=== PATIENT | male | born 1965 | race Caucasian/White ===

== ENCOUNTER 2018-05-17 10:18 | Observation (INO) | payer OTHER ==
[2018-05-17 11:12] LABS: ADD MAN DIFF? NO
[2018-05-17] MEDS: NITROGLYCERIN 2% 1 GM OINT PKT TD (11:12)
[2018-05-17] MEDS: ASPIRIN 325 MG TAB PO (11:12)
[2018-05-17 11:13] LABS: WHITE BLOOD COUNT 8.3 10^3/ul (4.8-10.8)
[2018-05-17 11:13] LABS: BASOPHILS % 0.4 % (0.0-2.0); EOSINOPHILS # 0.1 10^3/ul (0.0-0.5); EOSINOPHILS % 1.6 % (0.0-7.0); HEMATOCRIT 40.3 % (42.0-52.0); HEMOGLOBIN 13.9 g/dl (14.0-18.0); IMMATURE GRANS #M 0.04 10^3/ul; IMMATURE GRANS % (M) 0.5 %; LYMPHOCYTES # 1.4 10^3/ul (0.8-2.9); LYMPHOCYTES % 17.2 % (15.0-51.0); MEAN CORPUSCULAR HEMOGLOBIN 28.9 pg (29.0-33.0); MEAN CORPUSCULAR HGB CONC 34.5 g/dl (32.0-37.0); MEAN CORPUSCULAR VOLUME 83.8 fl (82.0-101.0); MEAN PLATELET VOLUME 9.8 fl (7.4-10.4); MONOCYTE # 0.8 10^3/ul (0.3-0.9); MONOCYTES % 9.9 % (0.0-11.0); NEUTROPHIL # 5.8 10^3/ul (1.6-7.5); NEUTROPHILS % 70.4 % (39.0-77.0); PLATELET COUNT 190 10^3/UL (140-415); RED BLOOD COUNT 4.81 10^6/ul (4.70-6.10); RED CELL DISTRIBUTION WIDTH 11.9 % (11.5-14.5)
[2018-05-17 11:31] LABS: ALANINE AMINOTRANSFERASE 191 IU/L (13-69); ALBUMIN 4.2 g/dl (3.3-4.9); ALBUMIN/GLOBULIN RATIO 1.16; ALKALINE PHOSPHATASE 138 IU/L (42-121); ANION GAP 17 (8-16); ASPARTATE AMINO TRANSFERASE 290 IU/L (15-46); BILIRUBIN,INDIRECT 1.3 mg/dl (0-1.1); BILIRUBIN,TOTAL 1.3 mg/dl (0.2-1.3); BLOOD UREA NITROGEN 11 mg/dl (7-20); CALCIUM 9.2 mg/dl (8.4-10.2); CARBON DIOXIDE 27 mmol/L (21-31); CHLORIDE 95 mmol/L (97-110); CREATININE 0.91 mg/dl (0.61-1.24); GLUCOSE 360 mg/dl (70-220); POTASSIUM 4.3 mmol/L (3.5-5.1); SODIUM 135 mmol/L (135-144); TOTAL PROTEIN 7.8 g/dl (6.1-8.1)
[2018-05-17 11:43] LABS: TROPONIN-I < 0.010 ng/ml (0.000-0.120)
[2018-05-17] MEDS ORDERED: ACETAMINOPHEN 325 MG TAB PO (13:00)
[2018-05-17] MEDS ORDERED: ONDANSETRON 4 MG INJ IV (13:00)
[2018-05-17] MEDS: SOD CHLORIDE 0.9% 1,000 ML IV ×2 (13:54→18:50)
[2018-05-17] MEDS ORDERED: DEXTROSE 50% 50 ML SYRINGE IV ×2 (19:00)
[2018-05-17] MEDS ORDERED: GLUCOSE GEL 15 GRAM TUBE BUCCAL (19:00)
[2018-05-17] MEDS ORDERED: GLUCAGON 1 MG INJ IM (19:00)
[2018-05-17] MEDS ORDERED: NACL 0.9% 3 ML SYG IV (19:00)
[2018-05-17] MEDS ORDERED: GLUCOSE GEL 15 GRAM TUBE PO ×2 (19:00)
[2018-05-17 19:39] LABS: TROPONIN-I < 0.010 ng/ml (0.000-0.120)
[2018-05-17] MEDS: INSULIN ASPART [NOVOLOG] 3 ML PEN SC ×2 (21:00→23:49)
[2018-05-17] MEDS: ATORVASTATIN 40 MG TAB PO (22:20)
[2018-05-17] MEDS ORDERED: morphine 2 MG INJ IV (23:00)
[2018-05-18] MEDS: INSULIN ASPART [NOVOLOG] 3 ML PEN SC ×3 (00:29→12:00)
[2018-05-18] MEDS ORDERED: INSULIN REGULAR, HUMAN 100 UNIT/1 ML 3ML VIAL SC (00:30)
[2018-05-18 01:51] LABS: TROPONIN-I < 0.010 ng/ml (0.000-0.120)
[2018-05-18] MEDS: ACCU-CHEK XX (02:00)
[2018-05-18 06:22] LABS: ADD MAN DIFF? NO
[2018-05-18 06:31] LABS: BASOPHILS % 0.4 % (0.0-2.0); EOSINOPHILS # 0.2 10^3/ul (0.0-0.5); EOSINOPHILS % 2.1 % (0.0-7.0); HEMATOCRIT 36.9 % (42.0-52.0); HEMOGLOBIN 12.5 g/dl (14.0-18.0); IMMATURE GRANS #M 0.02 10^3/ul; IMMATURE GRANS % (M) 0.2 %; LYMPHOCYTES # 1.6 10^3/ul (0.8-2.9); LYMPHOCYTES % 18.9 % (15.0-51.0); MEAN CORPUSCULAR HEMOGLOBIN 28.9 pg (29.0-33.0); MEAN CORPUSCULAR HGB CONC 33.9 g/dl (32.0-37.0); MEAN CORPUSCULAR VOLUME 85.2 fl (82.0-101.0); MEAN PLATELET VOLUME 9.7 fl (7.4-10.4); MONOCYTE # 0.9 10^3/ul (0.3-0.9); MONOCYTES % 10.6 % (0.0-11.0); NEUTROPHIL # 5.8 10^3/ul (1.6-7.5); NEUTROPHILS % 67.8 % (39.0-77.0); PLATELET COUNT 167 10^3/UL (140-415); RED BLOOD COUNT 4.33 10^6/ul (4.70-6.10); RED CELL DISTRIBUTION WIDTH 11.9 % (11.5-14.5)
[2018-05-18 06:31] LABS: WHITE BLOOD COUNT 8.5 10^3/ul (4.8-10.8)
[2018-05-18 06:41] LABS: ANION GAP 15 (8-16); BLOOD UREA NITROGEN 14 mg/dl (7-20); CALCIUM 8.9 mg/dl (8.4-10.2); CARBON DIOXIDE 27 mmol/L (21-31); CHLORIDE 102 mmol/L (97-110); CHOL/HDL RATIO 4.2 RATIO; CHOLESTEROL 182 mg/dl (100-200); CREATININE 0.88 mg/dl (0.61-1.24); GLUCOSE 192 mg/dl (70-220); HDL CHOLESTEROL 43 mg/dl (28-71); LDL CHOLESTEROL,CALCULATED 117 mg/dl; POTASSIUM 5.3 mmol/L (3.5-5.1); SODIUM 139 mmol/L (135-144); TRIGLYCERIDES 108 mg/dl (0-149)
[2018-05-18 07:18] LABS: HEMOGLOBIN A1C 12.2 % (0-5.9)
[2018-05-18] MEDS: SOD CHLORIDE 0.9% 1,000 ML IV (08:14)
[2018-05-18] MEDS: ASPIRIN 81 MG TAB PO (08:14)
[2018-05-18] MEDS: AMLODIPINE 5 MG TAB PO (09:00)
[2018-05-18 09:33] LABS: ALANINE AMINOTRANSFERASE 160 IU/L (13-69); ALBUMIN 3.7 g/dl (3.3-4.9); ALKALINE PHOSPHATASE 103 IU/L (42-121); ASPARTATE AMINO TRANSFERASE 175 IU/L (15-46); BILIRUBIN,INDIRECT 0.9 mg/dl (0-1.1); BILIRUBIN,TOTAL 0.9 mg/dl (0.2-1.3); TOTAL PROTEIN 6.6 g/dl (6.1-8.1)
[2018-05-18] MEDS: ENOXAPARIN 40 MG/0.4 ML SYG SC (10:00)
[2018-05-18 10:27] LABS: POTASSIUM 5.2 mmol/L (3.5-5.1)
[2018-05-18] MEDS ORDERED: REGADENOSON 0.4 MG/5 ML SYG (12:25)
== END 2018-05-18 16:30 | disposition home or self-care (01) ==
LOC: E/R 10:18 → 6WM 12:38
DX: R07.89 Other chest pain (principal); E11.65 Type 2 diabetes mellitus with hyperglycemia; I10 Essential (primary) hypertension; E87.5 Hyperkalemia; R74.0 Nonspecific elevation of levels of transaminase and lactic acid dehydrogenase [LDH]; Z79.4 Long term (current) use of insulin
CPT/HCPCS: 36415; 71045; 76705; 78452; 80048; 80053; 80061; 80076; 82962; 83036; 84132; 84484; 85025; 93005; 93017; 93306; 99217; 99285-25; G0378